=== PATIENT | male | born 1995 | race Hispanic/Latino ===

== ENCOUNTER 2017-11-04 01:09 | Emergency (ER) | payer OTHER ==
[2017-11-04 01:23] VITALS: PULSE 68; RESP 16
--- NOTE | 2017-11-04 02:11 | ED PDOC ---
HPI: Psych/Substance Abuse Time Seen by Provider: 11/04/17 01:52 Chief Complaint (Nursing): Alcohol Ingestion Chief Complaint (Provider): Alcohol Intoxication, Vomiting ED Caveat: Intoxicated History Per: Patient History/Exam Limitations: intoxication Onset/Duration Of Symptoms: Hrs Current Symptoms Are (Timing): Still Present Additional Complaint(s): 22 year old male presents to the ED for alcohol consumption and vomiting [employer]. Patient was brought in and vomited twice en route and reports continued nausea. He had approximately 8-12 alcoholic beverages. Further information could not be obtained due to intoxication. PMD: could not obtain due to ED caveat. Past Medical History Reviewed: Unable To Obtain Vital Signs: Last Vital Signs Temp 98 F 11/04/17 01:19 Pulse 68 11/04/17 01:19 Resp 16 11/04/17 01:19 BP 108/61 11/04/17 01:19 Pulse Ox 99 11/04/17 01:19 - Family History Family History: States: Unknown Family Hx - Social History Alcohol: Other (yes) - Allergies Allergies/Adverse Reactions: Allergies Allergy/AdvReac Type Severity Reaction Status Date / Time gluten AdvReac VOMITING Verified 11/04/17 01:19 Review of Systems ROS Statement: Except As Marked, All Systems Reviewed And Found Negative Psych: Positive for: Other (intoxication) Physical Exam - Reviewed Nursing Documentation Reviewed: Yes Vital Signs Reviewed: Yes - Physical Exam Comments: GENERAL APPEARANCE: Patient is awake, alert, oriented x 3, in no acute distress , resting comfortably, alcoholic odor. SKIN: Warm, dry; (-) cyanosis HEAD: (-) scalp swelling, (-) scalp tenderness. EYES: (+)bilateral conjunctival injection. ENMT: Mucous membranes moist. Airway patent: (-) stridor. NECK: (-) tenderness, (-) stiffness, (-) lymphadenopathy. CHEST AND RESPIRATORY: (-) rales, (-) rhonchi, (-) wheezes; breath sounds equal. ABDOMEN: Soft, (-) distention, (-) tenderness, (-) guarding. NEURO : (-) oriented - Laboratory Results Result Diagrams: 11/04/17 02:40 11/04/17 02:40 - ECG O2 Sat by Pulse Oximetry: 99 (RA) Pulse Ox Interpretation: Normal Medical Decision Making Medical Decision Making: Time: 1:54 Initial Impression: Alcohol intoxication Initial Plan: --alcohol serum --BMP --Urine drug screen --CBC with differentials --Glucose --NS --Zofran 8 mg IM --IV insertion 0415 Labs reviewed. Urine drug screen unremarkable. Serum Alcohol: 142 Patient resting comfortably in ED stretcher. 0515 On re-evaluation, patient reports improvement of symptoms. Patient now AAOx3, in no acute distress, and ambulating in ED with steady, unassisted gait. Tolerating PO intake. Neck is supple, lungs CTA, cardiac RRR, abdomen soft/nontender, neuro exam shows no focal findings. VSS, stable for discharge. Patient observed in ED for 4+ hours with no evidence of clinical deterioration. Diagnostic results d/w the patient in great detail. Dx of alcohol intoxication d /w the patient. Based on history, exam and diagnostic results plan will be for discharge and outpatient follow up. Advised to follow up with primary care physician/clinic/referred provider in 1- 2 days without fail. Return to the emergency room at any time for any new or worsening symptoms. Patient states he fully agrees with and understands discharge instructions. States that he agrees with the plan and disposition. Verbalized and repeated discharge instructions and plan. I have given the patient opportunity to ask any additional questions. Scribe Attestation: Documented by Earline Merida, acting as a scribe for Ana Garvin PA-C Provider Scribe Attestation: All medical record entries made by the Scribe were at my direction and personally dictated by me. I have reviewed the chart and agree that the record accurately reflects my personal performance of the history, physical exam, medical decision making, and the department course for this patient. I have also personally directed, reviewed, and agree with the discharge instructions and disposition. Disposition - Clinical Impression Clinical Impression: Alcohol ingestion, Alcohol intoxication, Nausea and vomiting - Patient ED Disposition Is Patient to be Admitted: No Counseled Patient/Family Regarding: Studies Performed, Diagnosis, Need For Followup, Rx Given - Disposition Disposition: Routine/Home Disposition Time: 05:20 Condition: IMPROVED Additional Instructions: FOLLOW UP WITH PMD NEEDED. RETURN TO ED WITH ANY NEW OR WORSENING SYMPTOMS. Instructions: Alcohol Use - When Is Drinking a Problem?, Nausea and Vomiting, Adult (DC), Effects of Alcohol on Your Health Forms: [employer] ([place]i) Print Language: ITALIAN - POA Present On Arrival: None Results - Lab Results Lab Results: 11/04/17 11/04/17 11/04/17 02:59 02:41 02:40 WBC 11.0 H RBC 4.52 Hgb 14.0 Hct 41.8 MCV 92.4 MCH 31.0 MCHC 33.5 RDW 12.4 Plt Count 208 MPV 9.1 Neut % (Auto) 73.5 Lymph % (Auto) 18.4 L Bucks % (Auto) 7.2 Eos % (Auto) 0.7 Baso % (Auto) 0.2 Neut # (Auto) 8.1 H Lymph # (Auto) 2.0 Bucks # (Auto) 0.8 Eos # (Auto) 0.1 Baso # (Auto) 0.0 Sodium Potassium Chloride Carbon Dioxide Anion Gap BUN Creatinine Est GFR ( Amer) Est GFR (Non-Af Amer) POC Glucose (mg/dL) 92 Random Glucose Calcium Urine Opiates Screen Negative Urine Methadone Screen Negative Ur Barbiturates Screen Negative Ur Phencyclidine Scrn Negative Ur Amphetamines Screen Negative U Benzodiazepines Scrn Negative U Oth Cocaine Metabols Negative U Cannabinoids Screen Negative Alcohol, Quantitative 11/04/17 02:40 WBC RBC Hgb Hct MCV MCH MCHC RDW Plt Count MPV Neut % (Auto) Lymph % (Auto) Bucks % (Auto) Eos % (Auto) Baso % (Auto) Neut # (Auto) Lymph # (Auto) Bucks # (Auto) Eos # (Auto) Baso # (Auto) Sodium 145 Potassium 4.2 Chloride 104 Carbon Dioxide 25 Anion Gap 20 BUN 11 Creatinine 1.0 Est GFR ( Amer) > 60 Est GFR (Non-Af Amer) > 60 POC Glucose (mg/dL) Random Glucose 97 Calcium 8.6 Urine Opiates Screen Urine Methadone Screen Ur Barbiturates Screen Ur Phencyclidine Scrn Ur Amphetamines Screen U Benzodiazepines Scrn U Oth Cocaine Metabols U Cannabinoids Screen Alcohol, Quantitative 142 H
[2017-11-04] MEDS ORDERED: Sodium Chloride 0.9% 1,000 ML IV SCH (02:15)
[2017-11-04 02:45] LABS: BASO % 0.2 % (0.0-2.0); EOS # 0.1 K/uL (0.0-0.7); EOS % 0.7 % (0.0-4.0); LYMPH % 18.4 % (20.0-40.0); MEAN CELL VOLUME 92.4 fl (80.0-94.0); MEAN CORPUSCULAR HGB CONC 33.5 g/dL (33.0-37.0); MEAN PLATELET VOLUME 9.1 fl (7.2-11.7); MONO # 0.8 K/uL (0.0-0.8); MONO % 7.2 % (0.0-10.0); NEUT # 8.1 K/uL (1.8-7.0); NEUT % 73.5 % (50.0-75.0); RBC 4.52 Mil/uL (4.40-5.90); RED CELL DISTRIBUTION WIDTH 12.4 % (11.5-14.5)
[2017-11-04 02:54] LABS: BLOOD UREA NITROGEN 11 mg/dl (9-20); CALCIUM 8.6 mg/dL (8.4-10.2); GFR AFRICAN-AMERICAN > 60; GFR NON-AFRICAN AMERICAN > 60
[2017-11-04 03:46] LABS: BARBITURATES, UR NEGATIVE (NEGATIVE); BENZODIAZEPINES, UR NEGATIVE (NEGATIVE); OPIATES, UR NEGATIVE (NEGATIVE); PHENCYCLIDINE, UR NEGATIVE (NEGATIVE)
[2017-11-04 05:20] VITALS: BP 110/72; TEMP 97.9; O2SAT 100
== END 2017-11-04 05:13 | disposition home or self-care (01) ==
LOC: H.ER 01:09
DX: F10.129 Alcohol abuse with intoxication, unspecified (principal); Y90.6 Blood alcohol level of 120-199 mg/100 ml
CPT/HCPCS: 80048; 80320; 80324; 80345; 80346; 80349; 80353; 80358; 80361; 82948; 83992; 85025; 96374; 99285; J2405; J7030